=== PATIENT | female | born 1995 | race Caucasian/White ===

== ENCOUNTER 2018-03-03 21:11 | Emergency (ER) | payer OTHER ==
[~2018-03-03] VITALS: Ht 160 cm; Wt 108.0 kg
[2018-03-03 21:18] VITALS: Ht 160 cm; Wt 108.0 kg
[2018-03-03 22:29] LABS: BASOPHIL % 0.2 % (0-2); PLATELET COUNT 340 x10^3mcL (130-400)
[2018-03-03 22:55] LABS: CALCIUM 8.6 mg/dL (8.5-10.1); CARBON DIOXIDE 26.6 mmol/L (21-32); CHLORIDE SERUM 100 mmol/L (98-107); CREATININE SERUM 0.8 mg/dL (0.6-1.0); GFR1 > 60 mL/min; GLUCOSE SERUM 110 mg/dL (74-106); POTASSIUM SERUM 3.7 mmol/L (3.5-5.1); SODIUM SERUM 137 mmol/L (136-145)
[2018-03-03 23:09] LABS: ALBUMIN 3.5 g/dL (3.4-5.0); ALKALINE PHOSPHATASE 117 U/L (46-116); ALT/SGPT 45 U/L (14-59); AMYLASE 42 U/L (25-115); AST/SGOT 25 U/L (15-37); BILIRUBIN TOTAL 0.47 mg/dL (0.20-1.00); LIPASE 134 IU/L (73-393); TOTAL PROTEIN, SERUM 7.5 g/dL (6.4-8.2)
[2018-03-04 00:44] VITALS: BP 121/71
== END 2018-03-04 00:44 | disposition home or self-care (01) ==
LOC: ED 21:11
PROVIDERS: Emergency Medicine
DX: E86.0 Dehydration (principal); R10.10 Upper abdominal pain, unspecified; R11.10 Vomiting, unspecified; R19.7 Diarrhea, unspecified
CPT/HCPCS: 83880; 87046; 87046-59; J1885; J2405; J7030

== ENCOUNTER 2018-04-25 00:42 | Emergency (ER) | payer OTHER ==
[~2018-04-25] VITALS: Ht 160 cm; Wt 106.1 kg
[2018-04-25 00:50] VITALS: Ht 160 cm; Wt 106.1 kg
[2018-04-25 01:46] VITALS: BP 124/98
== END 2018-04-25 01:46 | disposition home or self-care (01) ==
LOC: ED 00:42
DX: K04.7 Periapical abscess without sinus (principal); E66.9 Obesity, unspecified; Z68.41 Body mass index [BMI] 40.0-44.9, adult

== ENCOUNTER 2018-05-24 12:54 | Emergency (ER) | payer OTHER ==
[~2018-05-24] VITALS: Ht 160 cm; Wt 103.9 kg
[2018-05-24 12:57] VITALS: Ht 160 cm; Wt 103.9 kg
[2018-05-24 13:39] LABS: BASOPHIL % 1.1 % (0-2); PLATELET COUNT 328 x10^3mcL (130-400)
[2018-05-24 13:51] LABS: RED CELL DISTRIBUTION WIDTH 16.5 % (11.5-14.5)
[2018-05-24 14:56] VITALS: BP 109/61
== END 2018-05-24 14:56 | disposition home or self-care (01) ==
LOC: ED 12:54
PROVIDERS: Emergency Medicine
DX: N93.8 Other specified abnormal uterine and vaginal bleeding (principal); Z88.1 Allergy status to other antibiotic agents
CPT/HCPCS: J1885